=== PATIENT | female | born 1960 | race Caucasian/White ===

== ENCOUNTER 2023-06-10 12:38 | Day surgery (SDC) | payer OTHER, SELFPAY ==
[2023-06-08 10:56] VITALS: BMI 23.0
--- NOTE | 2023-06-09 10:14 | P.CONAN_ITS ---
Documented by User: Radha Everett NP 06/09/23 10:14 HPI - Anesthesia Eval Consult details Narrative: 62yo F for Colonoscopy [facility] Past Medical History Medical History (Updated 06/08/23 @ 10:56 by Petrona Calderon RN) Peritoneal carcinomatosis Colon cancer Anxiety and depression Osteopenia COPD (chronic obstructive pulmonary disease) Elevated cholesterol HTN (hypertension) Surgical History Surgical History (Updated 06/08/23 @ 10:56 by Petrona Calderon RN) Hx of bilateral oophorectomy H/O colonoscopy History of colon resection Social History Social History Advance Directives: No Advance Directives Information Provided: Yes Meds Allergies Allergy/AdvReac Type Severity Reaction Status Date / Time No Known Allergies Allergy Verified 06/08/23 10:52 Home Medications Medication Instructions Recorded Confirmed Last Taken Type hydrochlorothiazide 12.5 mg capsule 12.5 mg PO DAILY 06/08/23 06/08/23 Unknown History losartan 50 mg tablet 50 mg PO DAILY 06/08/23 06/08/23 Unknown History simvastatin 20 mg tablet 20 mg PO BEDTIME 06/08/23 06/08/23 Unknown History Exam Exam Date and Time: June 09, 2023 1014 Height,Weight and Vital Signs: Height 5 ft 3 in Weight 58.967 kg Assessment and Plan Assessment Anesthesia Assessment: Chart Reviewed Documented by User: Goyo Haines MD 06/10/23 13:21 [facility] Past Medical History Medical History (Updated 06/08/23 @ 10:56 by Petrona Calderon RN) Peritoneal carcinomatosis Colon cancer Anxiety and depression Osteopenia COPD (chronic obstructive pulmonary disease) Elevated cholesterol HTN (hypertension) Family History Family history of problems with anesthesia: No Surgical History Surgical History (Updated 06/08/23 @ 10:56 by Petrona Calderon RN) Hx of bilateral oophorectomy H/O colonoscopy History of colon resection History of Problems with Anesthesia: No Social History Social History Advance Directives: No Advance Directives Information Provided: Yes Meds Allergies Allergy/AdvReac Type Severity Reaction Status Date / Time No Known Allergies Allergy Verified 06/08/23 10:52 Home Medications Medication Instructions Recorded Confirmed Last Taken Type hydrochlorothiazide 12.5 mg capsule 12.5 mg PO DAILY 06/08/23 06/08/23 Unknown History losartan 50 mg tablet 50 mg PO DAILY 06/08/23 06/08/23 Unknown History simvastatin 20 mg tablet 20 mg PO BEDTIME 06/08/23 06/08/23 Unknown History Exam Airway Mallampati Class: II TM Dist: <=3cm Neck ROM: Full Loose/Missing/Broken Teeth: No Heart: ok Lungs: ok Assessment and Plan Assessment Anesthesia Assessment: Anesthesia Plan Discussed Final Anesthetic Review Family History of Problems with Anesthesia: No History of Problems with Anesthesia: No NPO: Yes ASA Class: III Final Preanesthetic Review: No Changes in Pt Med Stat, Meds/Allgs Chart Reviewed, Consent Obtained/Reviewed and Anes Risks/Benef Reviewed Patient Risk: Intermediate Procedure Risk: Low Anesthetic Plan Anesthetic Plan: MAC: and Agree w/ Assess. and Plan Disposition: Standard PACU
[2023-06-10 12:49] VITALS: BP 149/78; PULSE 103; RESP 18; TEMP 36.6; O2SAT 97
--- NOTE | 2023-06-10 13:51 | MHC.SHP ---
Pre-Procedural Eval Section A Date of Service: 06/10/23 The patient is an INPATIENT: No Changes since office visit: No Cold of Flu in the past 2 weeks, No New Medical Problems, No Changes in Medication and No Patient answered all questions The History & Physical has been completed within 30 days and I have reviewed it.: Yes Section B Chief Complaint: Encounter for screening for malignant neoplasm of Allergies: Allergies Allergy/AdvReac Type Severity Reaction Status Date / Time No Known Allergies Allergy Verified 06/08/23 10:52 Plan I have reviewed the history and physical and performed a pertinent physical examination on my patient. No changes have occurred unless specified. Time Spent With Patient Time: Total time managing care of this patient today ____ minutes.
--- NOTE | 2023-06-10 14:31 | P.BOP_ITS ---
Brief Operative Note Date of Service: 06/10/23 Pre-op diagnosis: screening Post-op diagnosis: same Procedure: colonoscopy Surgeon: Ángel Bolanos MD Anesthesia: MAC Was an Accounts Receivable Administrator used for this Procedure?: No Estimated blood loss (mL): 0 Pathology: other Condition: stable Disposition: PACU
[2023-06-10 14:35] VITALS: BP 90/40; PULSE 90; RESP 16; TEMP 36.6; O2SAT 97
[2023-06-10 14:45] VITALS: BP 97/43; PULSE 74; RESP 16; O2SAT 99
[2023-06-10 14:50] VITALS: BP 99/57; PULSE 86; RESP 16; O2SAT 97
[2023-06-10 15:05] VITALS: BP 123/48; PULSE 92; RESP 16; TEMP 36.7; O2SAT 96
[2023-06-10 15:12] VITALS: BP 125/52; PULSE 90; RESP 16; TEMP 36.7; O2SAT 96
--- NOTE | 2023-06-10 16:26 | OP_ITS ---
DATE OF SERVICE: 06/10/2023 SURGEON: Ángel Bolanos MD INDICATIONS: Colon cancer screening and prior history of colon cancer. PREOPERATIVE DIAGNOSIS: POSTOPERATIVE DIAGNOSIS: PROCEDURE PERFORMED: Colonoscopy to neoterminal ileum with snare polypectomy. ESTIMATED BLOOD LOSS: COMPLICATIONS: ANESTHESIA: Monitored anesthesia care. ASSISTANTS: SPECIMENS: DESCRIPTION OF PROCEDURE: History and physical performed. The risks and benefits of the procedure explained to the patient. Informed consent was obtained. The patient was placed in a left lateral decubitus position. A digital rectal exam was performed and was found to be normal. The Olympus pediatric colonoscope was introduced into the rectum and advanced to the ileocolonic anastomosis. Examination was performed. The scope was removed. She tolerated the procedure well and returned to Recovery in stable condition. FINDINGS: There was a patent ileocolonic anastomosis at about 35 cm from the anal verge. The neoterminal ileum appeared normal. The anastomosis showed no evidence of cancer and was widely patent. The remainder of the colon appeared within normal limits without evidence of masses or ulcers. At 25 cm was, removed with a snare. The polyp measured approximately 8 mm and was recovered by suction. No other polyps were identified. There was some stool coating mucosa, which was washed and suctioned. This limited the sensitivity examination for detection of small polyps. Retroflexed examination showed small internal hemorrhoids. IMPRESSION: Colon polyp. RECOMMENDATION: Follow up biopsy results. MD LALITHA Cast/NORIS / [id number]
== END 2023-06-10 15:32 | disposition home or self-care (01) ==
PROVIDERS: PCP Internal Medicine Geriatric Medicine; Visit Provider Internal Medicine Gastroenterology
PROC: 0DJD8ZZ Inspection of Lower Intestinal Tract, Via Natural or Artificial Opening Endoscopic (ICD-10-PCS; CPT 45378; principal; 2023-06-10 13:50)
DX: Z12.11 Encounter for screening for malignant neoplasm of colon (principal); Z85.038 Personal history of other malignant neoplasm of large intestine; Z85.89 Personal history of malignant neoplasm of other organs and systems; D12.5 Benign neoplasm of sigmoid colon; K64.8 Other hemorrhoids; Z90.49 Acquired absence of other specified parts of digestive tract; Z98.0 Intestinal bypass and anastomosis status; Z92.21 Personal history of antineoplastic chemotherapy; J44.9 Chronic obstructive pulmonary disease, unspecified; I10 Essential (primary) hypertension; E78.5 Hyperlipidemia, unspecified; R73.9 Hyperglycemia, unspecified; M85.80 Other specified disorders of bone density and structure, unspecified site; F41.8 Other specified anxiety disorders; Z79.899 Other long term (current) drug therapy; Z98.890 Other specified postprocedural states
CPT/HCPCS: 45385; 88305; J2250